=== PATIENT | male | born 1985 | race Caucasian/White ===

== ENCOUNTER → 2017-11-18 | Outpatient (CLI) | payer OTHER ==
[~2017-11-18] MED LIST: DOXY100 PO; HYDACE5 PO; IBUP800 PO; NAPR500 PO; RXHYD5325 PO
== END ==
LOC: LAB SHORT 12:42 → PLD 12:42
DX: D22.4 Melanocytic nevi of scalp and neck (principal); D22.5 Melanocytic nevi of trunk
CPT/HCPCS: 88305